=== PATIENT | female | born 1970 | race Caucasian/White ===

== ENCOUNTER 2017-07-09 17:10 | Emergency (ER) | END 2017-07-09 20:12 | disposition home or self-care (01) ==

== ENCOUNTER 2018-07-12 08:05 | Emergency (ER) | payer BC ==
[~2018-07-12] VITALS: Ht 152.4 cm; Wt 65.5 kg
[~2018-07-12 08:05] MED LIST: HYDR-4011 PO; PENI500T PO
[2018-07-12 08:09] VITALS: Ht 152.4 cm; Wt 65.5 kg
[2018-07-12] MEDS ORDERED: ONDANSETRON 4 MG INJ IV STA (09:09)
[2018-07-12] MEDS ORDERED: morphine 4 MG/ML VIAL IV STA (09:09)
[2018-07-12] MEDS ORDERED: LACTATED RINGER'S 1,000 ML IV STA (09:09)
--- NOTE | 2018-07-12 10:59 | ERD ---
ER Documentation Chief Complaint Chief Complaint pt has bright red rectal bleeding x 8 days HPI This is a 47-year-old woman who returned from [facility] yesterday complaining of 1 week of diarrhea, rectal bleeding, abdominal cramping. She states diagnosis of infectious diarrhea was made last week while in [facility] and she was given IV injections of antibiotics and discharged from the hospital. She states compared to last week her abdominal cramping, diarrhea, bleeding frequency has overall decreased and she feels somewhat better but is here for reevaluation. She has had some nausea but no vomiting, no fevers or chills, no chest pain or shortness of breath. She continues to use oral antibiotics but does not recall the name of the medication ROS All systems reviewed and are negative except as per history of present illness. Medications Home Meds Active Scripts Hydrocodone/Acetaminophen ([place] 5-325 Tablet) 1 Each Tablet, 1 TAB PO Q6H PRN for PAIN, #7 TAB Prov:LEROY SEXTON PA-C 07/09/17 Penicillin V Potassium* (Penicillin V K*) 500 Mg Tab, 500 MG PO BID for 10 Days, TAB Prov:IRWIN RAO 09/15/15 Allergies Allergies: Coded Allergies: No Known Drug Allergy (Verified Allergy, Unknown, 07/12/18) PMhx/Soc History of Surgery: Yes (gallbladder, tubal ligation) Anesthesia Reaction: No Hx Neurological Disorder: No Hx Respiratory Disorders: No Hx Cardiac Disorders: No Hx Psychiatric Problems: No Hx Miscellaneous Medical Probl: No Hx Alcohol Use: No Hx Substance Use: No Hx Tobacco Use: No Smoking Status: Never smoker Physical Exam Vitals Vital Signs Date Temp Pulse Resp B/P (MAP) Pulse Ox O2 O2 Flow FiO2 Time Delivery Rate 07/12/18 68 16 98/56 (70) 99 Room Air 11:45 07/12/18 65 16 93/69 (77) 99 Room Air 08:53 07/12/18 98.6 78 18 121/61 100 08:09 (81) Physical Exam GENERAL: Well-developed, well-nourished, well-hydrated, in no apparent distress, looks nontoxic in appearance HEENT: Moist mucous membranes, pink conjunctiva, no cervical spine tenderness or step-off deformities, no goiter, no jaundice or icterus, extraocular movements intact without pain. No submandibular induration, and no pharyngeal erythema NEURO: Alert and oriented 3, cranial nerves II through XII intact bilaterally, pupils equal round reactive to light, no focal deficits or facial asymmetry, sensation intact distally Strength 5/5 in upper and lower extremities bilaterally CARDIAC: Regular rate and rhythm, no murmurs rubs or gallops LUNGS: Clear bilaterally no wheezing crackles or stridor ABDOMEN: Soft nontender, no guarding, no rigidity, no rebound, no psoas sign no obturator sign. Normoactive bowel sounds SKIN: Warm and dry to touch, no abrasions, contusions, or hematomas, no lacerations, no ecchymosis, no target lesions, and without ulcers EXTREMITIES: No clubbing cyanosis or edema, calves are bilaterally symmetrical, no Homans sign, no popliteal cord sign. Distal pulses equal and bilateral PSYCH: Normal affect without agitation or irritability Result Diagram: 07/12/18 0935 07/12/18 0935 Results 24 hrs Laboratory Tests Test 07/12/18 09:35 07/12/18 10:44 White Blood Count 6.6 10^3/ul Red Blood Count 3.66 10^6/ul Hemoglobin 10.9 g/dl Hematocrit 32.4 % Mean Corpuscular Volume 88.5 fl Mean Corpuscular Hemoglobin 29.8 pg Mean Corpuscular Hemoglobin Concent 33.6 g/dl Red Cell Distribution Width 13.0 % Platelet Count 336 10^3/UL Mean Platelet Volume 9.5 fl Immature Granulocytes % 1.700 % Neutrophils % 58.1 % Lymphocytes % 29.2 % Monocytes % 7.3 % Eosinophils % 2.9 % Basophils % 0.8 % Nucleated Red Blood Cells % 0.0 /100WBC Immature Granulocytes # 0.110 10^3/ul Neutrophils # 3.9 10^3/ul Lymphocytes # 1.9 10^3/ul Monocytes # 0.5 10^3/ul Eosinophils # 0.2 10^3/ul Basophils # 0.1 10^3/ul Nucleated Red Blood Cells # 0.0 10^3/ul Prothrombin Time 12.3 Sec Prothrombin Time Ratio 1.0 INR International Normalized Ratio 0.90 Activated Partial Thromboplast Time 28.5 Sec Urine Color YELLOW Urine Clarity CLEAR Urine pH 6.0 Urine Specific [place] 1.012 Urine Ketones NEGATIVE mg/dL Urine Nitrite NEGATIVE mg/dL Urine Bilirubin NEGATIVE mg/dL Urine Urobilinogen NEGATIVE mg/dL Urine Leukocyte Esterase NEGATIVE Kristine/ul Urine Hemoglobin NEGATIVE mg/dL Urine Glucose NEGATIVE mg/dL Urine Total Protein NEGATIVE mg/dl Sodium Level 142 mmol/L Potassium Level 4.4 mmol/L Chloride Level 105 mmol/L Carbon Dioxide Level 30 mmol/L Anion Gap 7 Blood Urea Nitrogen 8 mg/dl Creatinine 0.42 mg/dl Est Glomerular Filtrat Rate mL/min > 60 mL/min Glucose Level 91 mg/dl Calcium Level 8.9 mg/dl Total Bilirubin 0.2 mg/dl Direct Bilirubin 0.00 mg/dl Indirect Bilirubin 0.2 mg/dl Aspartate Amino Transf (AST/SGOT) 35 IU/L Alanine Aminotransferase (ALT/SGPT) 45 IU/L Alkaline Phosphatase 89 IU/L Total Protein 6.9 g/dl Albumin 3.8 g/dl Globulin 3.10 g/dl Albumin/Globulin Ratio 1.22 Lipase 137 U/L POC Beta HCG, Qualitative NEGATIVE Current Medications Medications Dose Sig/Marisabel Start Time Status Last (Trade) Ordered Route PRN Stop Time Admin Dose Reason Admin Lactated 1,000 ml @ Q1H STAT 07/12/18 DC 07/12/18 Ringer's 1,000 mls/hr IV 09:09 09:27 07/12/18 10:08 Morphine 4 mg ONCE STAT 07/12/18 DC Sulfate IV 09:09 (morphine) 07/12/18 09:11 Ondansetron 4 mg ONCE STAT 07/12/18 DC 07/12/18 HCl (Zofran IV 09:09 09:28 Inj) 07/12/18 09:11 Procedures/MDM IV line was established patient was placed on monitor technician rhythm strip revealed a sinus rhythm at about 80 bpm with upright P and T waves. Patient was afebrile I administered 1 L LR IV, morphine 4 mg IV, Zofran 4 mg IV. test was negative, urinalysis negative for infection CBC and electrolytes are normal, liver function tests were normal, coagulation profile normal. CT scan of the abdomen and pelvis was performed, given the patient's symptoms. There was no acute inflammatory or infectious pathology noted, vascular structures were unremarkable. Please refer radiologist's dictation for full report. Differential diagnoses considered, included but not limited to acute coronary syndrome, pulmonary embolism, aortic dissection, abdominal aortic aneurysm, sepsis, stroke, meningitis, encephalitis, pneumonia, appendicitis, cholecystitis, bowel obstruction, pyelonephritis, nephrolithiasis, cystitis, as well as metabolic, hematologic, and electrolyte abnormalities. As well as abscess, cellulitis, fractures, and dislocations. Patient feels much better at this time, and vital signs are normal, symptoms have improved. I did give strict instructions to return to the ED if symptoms continue or worsen, patient will otherwise follow-up with primary care physician. Patient understood instructions and agreed to plan. Disclaimer: Inadvertent spelling and grammatical errors are likely due to EHR/dictation software use and do not reflect on the overall quality of patient care. Also, please note that the electronic time recorded on this note does not necessarily reflect the actual time of the patient encounter. Departure Diagnosis: Primary Impression: Infectious colitis Condition: Good ISRAEL SCALES MD Jul 12, 2018 10:59
[2018-07-12 11:45] VITALS: BP 98/56; PULSE 68; RESP 16
== END 2018-07-12 11:58 | disposition home or self-care (01) ==
LOC: E/R 08:05
DX: A09 Infectious gastroenteritis and colitis, unspecified (principal)
CPT/HCPCS: 36415; 74176; 80053; 81003; 81025; 83690; 85025; 85610; 85730; 96374; J2405; J7120; Z7502; J2270